=== PATIENT | female | born 1970 | race Caucasian/White ===

== ENCOUNTER → 2016-09-03 | Outpatient (CLI) | payer OTHER | LOC: CIMAGING 13:13 | DX: Z12.39 Encounter for other screening for malignant neoplasm of breast (principal); N64.4 Mastodynia | CPT/HCPCS: 76641-PO; G0204 ==

== ENCOUNTER → 2017-12-27 | Outpatient (CLI) | payer OTHER | LOC: CIMAGING 14:44 | PROVIDERS: ATTEND Family Medicine | DX: Z12.31 Encounter for screening mammogram for malignant neoplasm of breast (principal) ==